=== PATIENT | female | born 1940 | race Caucasian/White ===

== ENCOUNTER 2021-09-21 13:39 | Outpatient (CLI) | payer MEDICARE ==
[2021-09-21 14:15] LABS: Bilirubin Negative (Negative); Blood, Urine Trace (Negative); Clarity Clear (Clear); Glucose, Urine (Dipstick) Negative (Negative); Ketone, Urine Negative (Negative); Leukocyte Negative (Negative); Nitrite Negative (Negative); Protein, Urine (Dipstick) Negative (Neg-Trace); Urobilinogen 0.2 mg/dL (Less than 2)
[2021-09-21 14:23] LABS: Bacteria/HPF Rare-Few HPF (None Seen); RBC/HPF 0-3 HPF (0-3); Squamous Epithelial 0-3 HPF (0-3); WBC/HPF None Seen HPF (0-3)
== END 2021-09-21 13:40 | disposition home or self-care (01) ==
LOC: MADLAB 13:39
PROVIDERS: ATTEND Nurse Practitioner Family
DX: Z47.1 Aftercare following joint replacement surgery (principal); I10 Essential (primary) hypertension; Z96.652 Presence of left artificial knee joint
CPT/HCPCS: 81001; 87086

== ENCOUNTER 2025-08-11 00:24 | Emergency (ER) | payer MEDICARE ==
[2025-08-11 00:57] LABS: INR-International Normal Ratio 1.0; Prothrombin Time 12.9 sec (12.0-14.7)
[2025-08-11 01:04] LABS: ALT (SGPT) 17 U/L (Less than 34); AST (SGOT) 25 U/L (11-34); Albumin 4.3 g/dL (3.1-4.5); Alkaline Phosphatase 84 U/L (40-110); Anion Gap 19 mmol/L (10-20); BUN (Urea Nitrogen) 20 mg/dL (9.8-20.1); Bilirubin, Total 0.6 mg/dL (0.3-1.2); Calc. Creatinine Clearance 0 mL/min (70-130); Calcium 10.2 mg/dL (7.8-10.44); Carbon Dioxide 24 mmol/L (23-31); Chloride 102 mmol/L (98-107); Globulin 2.9 g/dL (2.4-3.5); Glucose 168 mg/dL (83-110); Sodium 141 mmol/L (136-145)
[2025-08-11 01:17] LABS: Potassium 4.4 mmol/L (3.5-5.1)
[2025-08-11] MEDS ORDERED: Amoxicillin/Potassium Clav 875 MG TAB ONE (02:16)
[2025-08-11 02:44] LABS: Bicarbonate (HCO3v) 27.9 mmol/L (22.0-28.0); CO2 Tension (PvCO2) 47.3 mmHg (42.0-51.0); Calcium, Ionized 1.25 mmol/L (1.15-1.33); Chloride 103 mmol/L (98-107); Hemoglobin - Calc 16.3 g/dL (12.0-16.0); Potassium 4.0 mmol/L (3.5-5.1); Sodium 139 mmol/L (138-145); T. Carbon Dioxide 29.4 mmol/L (22.0-28.0); vO2 Saturation-calc 61.1 % (60.0-85.0)
[2025-08-11 05:31] LABS: Troponin I Less than 0.010 ng/mL (< 0.028)
[2025-08-11] MEDS ORDERED: Iopamidol 370 76% 100 ML VIAL ONE (09:00)
== END 2025-08-11 02:32 | disposition home or self-care (01) ==
LOC: MADERS 00:24
DX: K52.9 Noninfective gastroenteritis and colitis, unspecified (principal)
CPT/HCPCS: 74177; 80053; 82274; 82330; 82803; 84484; 85610; 93005; 94760; 96360; J7030; Q9967